=== PATIENT | male | born 1990 | race Caucasian/White ===

== ENCOUNTER 2018-08-27 13:32 | Emergency (ER) | payer MEDICAID ==
[~2018-08-27] VITALS: Ht 170.2 cm; Wt 90.7 kg
[2018-08-27 13:35] VITALS: BP_SYST 143
[2018-08-27] MEDS ORDERED: IBUPROFEN 600 MG TABLET PO ONE (15:15)
[2018-08-27 16:00] VITALS: BP_SYST 143
== END 2018-08-27 16:00 | disposition home or self-care (01) ==
LOC: SED 13:32
DX: S83.92XA Sprain of unspecified site of left knee, initial encounter (principal); V03.90XA Pedestrian on foot injured in collision with car, pick-up truck or van, unspecified whether traffic or nontraffic accident, initial encounter; Y93.89 Activity, other specified; Y92.481 Parking lot as the place of occurrence of the external cause; Y99.8 Other external cause status
CPT/HCPCS: 73564; 99283